=== PATIENT | female | born 2000 | race Two or more races ===

== ENCOUNTER 2018-03-23 15:14 | Emergency (ER) | payer OTHER ==
[~2018-03-23] VITALS: Ht 157.5 cm; Wt 59.0 kg
== END 2018-03-23 23:43 | disposition home or self-care (01) ==
LOC: ER 15:14
DX: N39.0 Urinary tract infection, site not specified (principal)

== ENCOUNTER → 2021-08-18 | Emergency (ER) | payer OTHER ==
[~2021-08-18] VITALS: Ht 157.5 cm; Wt 77.1 kg
== END | disposition home or self-care (01) ==
LOC: ER 13:25
DX: R53.81 Other malaise (principal); B96.0 Mycoplasma pneumoniae [M. pneumoniae] as the cause of diseases classified elsewhere

== ENCOUNTER 2021-12-06 11:35 | Emergency (ER) | payer OTHER ==
[~2021-12-06] VITALS: Ht 160 cm; Wt 77.1 kg
[2021-12-06] MEDS ORDERED: KETO10TA2 PO (12:17)
[2021-12-06] MEDS ORDERED: AMOX-CLAV 875-1 EACH PO (12:17)
== END 2021-12-06 12:56 | disposition home or self-care (01) ==
LOC: EMR PED 11:35 → ER 11:39
DX: L03.317 Cellulitis of buttock (principal)